=== PATIENT | male | born 2005 | race Caucasian/White ===

== ENCOUNTER 2025-02-04 16:58 | Emergency (ER) | payer OTHER, SELFPAY ==
--- NOTE | 2025-02-04 18:38 | RAD REPORT ---
EXAM: Knee Left 3 View INDICATION: history of dislocated patella COMPARISON: None FINDINGS: No acute fracture. No significant knee effusion. Possible medial subluxation of the patella but no therese dislocation. Other: N/A IMPRESSION: No left knee fracture. No patellar dislocation though there could be some medial subluxat ion.
[2025-02-04] MEDS ORDERED: IBUPROFEN 400 MG TAB ONE (19:16)
--- NOTE | 2025-02-04 19:21 | EDPHYS ---
Physician Documentation [facility] Name: Aquiles De Souza Age: 19 yrs Sex: Male : 2005 Arrival Date: 02/04/2025 Time: 16:58 Bed 12 Private MD: ED Physician Ankush Wang HPI: 02/04 17:30 This 19 yrs old Male presents to ER via Wheelchair with complaints of Knee Pain. cp 17:30 The patient presents with pain, that is acute. cp 17:30 The complaints affect the left knee. Context: Father reports patient's knee was bent cp and he observed the left patella to be laterally dislocated. He was able to relocate the patella by straightening the left knee. No trauma. Patient c/o that left knee gave out prior to incident. Historical: - Allergies: 17:20 No Known Allergies; ap3 - PMHx: 17:20 autism; ap3 - Immunization history:: Adult Immunizations up to date. - Infectious Disease History:: Denies. - Social history:: Smoking status: Patient denies any tobacco usage or history of. ROS: 17:35 MS/extremity: Positive for pain, of the left knee, Negative for injury or acute cp deformity, decreased range of motion, 17:35 Constitutional: history per hpi cp 17:35 Neck: Negative for pain with movement, pain at rest, 17:35 Back: Negative for pain at rest, pain with movement, 17:35 All other systems are negative, Exam: 17:40 Constitutional: The patient appears in no acute distress, alert, awake, non-toxic, well cp developed, well nourished, obese, 17:40 Head/Face: Normocephalic, atraumatic. cp 17:40 Chest/axilla: Inspection: normal, 17:40 Cardiovascular: Rate: normal, 17:40 Respiratory: the patient does not display signs of respiratory distress, Respirations: normal, 17:40 Abdomen/GI: Exam negative for discomfort, distension, guarding, Inspection: abdomen cp appears normal, 17:40 Back: pain, is absent, ROM is normal, 17:40 Musculoskeletal/extremity: Extremities: noted in the left knee: tenderness to palpation of patella, mild laxity noted, There is no evidence of decreased ROM, deformity, swelling, ROM: limited passive range of motion due to pain, in the left knee, Vital Signs: 17:19 BP 158 / 76; Pulse 81; Resp 17; Temp 98.2; Pulse Ox 100% ; ap3 19:34 BP 148 / 74; Pulse 78; Resp 18; Temp 98; Pulse Ox 100% on R/A; kj2 MDM: 17:24 Medical Screening Exam initiated 19:20 Data reviewed: vital signs, nurses notes, radiologic studies, plain films. 02/04 17:25 Order name: XRAY Knee LEFT 3 view; Complete Time: 19:21 cp 02/04 19:21 Interpretation: Report reviewed. cp 02/04 19:19 Order name: Knee Immobilizer; Complete Time: 19:33 cp Administered Medications: 19:33 Drug: Ibuprofen PO 800 mg PO once Route: PO; kj2 19:37 Follow up: Response: No adverse reaction kj2 Disposition Summary: 02/04/25 19:20 Discharge Ordered Notes: Location: Home cp Problem: new cp Symptoms: have improved cp Condition: Stable cp Diagnosis - Lateral dislocation of left patella cp Followup: cp - With: Juan Cobian MD - When: 5 - 6 days - Reason: Recheck today's complaints Discharge Instructions: - Discharge Summary Sheet cp - Patellar Dislocation cp - Form - Excuse from Work, School, or Physical Activity cp - Patellar Dislocation and Subluxation cp Forms: - Medication Reconciliation Form cp - Antibiotic Education cp - Prescription Opioid Use cp - Patient Portal Instructions cp - Leadership Thank You Letter cp - Work release form lg3 Prescriptions: - Anaprox DS 550 mg Oral Tablet - take 1 tablet ORAL route every 12 hours As needed; 20 tablet; Refills: 0, cp Product Selection Permitted Addendum: 02/06/2025 07:01 Co-signature as Attending Physician, Ankush Wang MD I reviewed the patient's care r n provided by the Advanced Practice Provider and agree with the diagnosis and treatment plan. Signatures: Dispatcher [employer] Ankush Berg MD MD rn Page, Corey, PA PA cp Shannon Maldonado RN RN ap3 Joy Barrientos RN RN kj2 Corrections: (The following items were deleted from the chart) 02/04 19:34 19:19 Crutches ordered. cp kj2
--- NOTE | 2025-02-04 19:21 | ER ---
Nurse's Notes [facility] Name: Aquiles De Souza Age: 19 yrs Sex: Male : 2005 Arrival Date: 02/04/2025 Time: 16:58 Bed 12 Private MD: Diagnosis: Lateral dislocation of left patella Presentation: 02/04 17:19 Chief complaint: Patient states: he was walking when his left knee felt like it "gave ap3 out" and now his left knee is hurting. Coronavirus screen: At this time, the client does not indicate any symptoms associated with coronavirus-19. Ebola Screen: No symptoms or risks identified at this time. Initial Sepsis Screen: Does the patient meet any 2 criteria? No. Patient's initial sepsis screen is negative. Does the patient have a suspected source of infection? No. Patient's initial sepsis screen is negative. Risk Assessment: Do you want to hurt yourself or someone else? Patient reports no desire to harm self or others. Onset of symptoms was February 04, 2025. 17:19 Method Of Arrival: Wheelchair ap3 17:19 Acuity: REYNOLD 4 ap3 Triage Assessment: 17:20 General: Appears in no apparent distress. Behavior is calm, cooperative, appropriate ap3 for age. Pain: Complains of pain in left knee. Neuro: Level of Consciousness is awake, alert, obeys commands, Oriented to person, place, time, situation. Cardiovascular: Patient's skin is warm and dry. Respiratory: Airway is patent Respiratory effort is even, unlabored, Respiratory pattern is regular, symmetrical. Historical: - Allergies: 17:20 No Known Allergies; ap3 - PMHx: 17:20 autism; ap3 - Immunization history:: Adult Immunizations up to date. - Infectious Disease History:: Denies. - Social history:: Smoking status: Patient denies any tobacco usage or history of. Screenin:21 Abuse screen: Denies threats or abuse. Nutritional screening: No deficits noted. ap3 Tuberculosis screening: No symptoms or risk factors identified. 19:36 [facility] ED Fall Risk Assessment (Adult) History of falling in the last 3 months, kj2 including since admission No falls in past 3 months (0 pts) Confusion or Disorientation No (0 pts) Intoxicated or Sedated No (0 pts) Impaired Gait No (0 pts) Mobility Assist Device Used No (0 pt) Altered Elimination No (0 pt) Score/Fall Risk Level 0 - 2 = Low Risk Maintained a safe environment, Hourly rounding (assess needs \\T\\ fall precautionary measures) done. Assessment: 19:35 General: Appears in no apparent distress. Behavior is calm, cooperative. Pain: kj2 Complains of pain in left leg and left knee Pain currently is 5 out of 10 on a pain scale. Neuro: Level of Consciousness is awake, alert, Oriented to person, place, time, situation. Cardiovascular: Respiratory: Airway is patent Respiratory effort is unlabored. GI: No signs and/or symptoms were reported involving the gastrointestinal system. Vital Signs: 17:19 BP 158 / 76; Pulse 81; Resp 17; Temp 98.2; Pulse Ox 100% ; ap3 19:34 BP 148 / 74; Pulse 78; Resp 18; Temp 98; Pulse Ox 100% on R/A; kj2 ED Course: 16:59 Patient arrived in ED. im 17:00 Steve Walls PA is PHCP. cp 17:00 Ankush Wang MD is Attending Physician. cp 17:20 Triage completed. ap3 17:21 Arm band placed on right wrist. ap3 18:28 XRAY Knee LEFT 3 view In Process Unspecified. EDMS 19:15 Patient has correct armband on for positive identification. Provided Education on: call kj2 light. 19:20 oJy Barrientos RN is Primary Nurse. kj2 19:20 Juan Cobian MD is Referral Physician. cp 19:36 No provider procedures requiring assistance completed. Patient did not have IV access kj2 during this emergency room visit. Administered Medications: 19:33 Drug: Ibuprofen PO 800 mg PO once Route: PO; kj2 19:37 Follow up: Response: No adverse reaction kj2 Medication: 19:36 VIS not applicable for this client. kj2 Outcome: 19:20 Discharge ordered by . cp 19:37 Discharged to home kj2 19:37 Condition: stable 19:37 Discharge instructions given to patient, Instructed on discharge instructions, follow up and referral plans. Demonstrated understanding of instructions, follow-up care, 19:42 Patient left the ED. kj2 Signatures: Dispatcher [employer] EDMS Steve Walls PA PA cp Prokisch, Amanda, RN RN ap3 Fuentes, Tami im Joy Barrientos RN RN kj2
[2025-02-04 20:10] VITALS: O2SAT 100
[2025-02-04 20:11] VITALS: BP 148/74; TEMP 98
== END 2025-02-04 19:42 | disposition home or self-care (01) ==
LOC: ER 16:58
DX: S83.015A Lateral dislocation of left patella, initial encounter (principal)
CPT/HCPCS: 99283